=== PATIENT | female | born 1960 | race Caucasian/White ===

== ENCOUNTER 2019-01-02 08:00 | Inpatient (IN) ==
--- NOTE | 2018-12-27 09:33 | ANES ---
Anesthesia Pre Procedure Eval HOME MEDICATIONS Acetaminophen [Tylenol] 500 mg PO Q3H PRN 05/18/16 [Last Taken Unknown] Cholecalciferol (Vitamin D3) [Vitamin D3] 1,000 unit PO DAILY 05/18/16 [Last Taken Unknown] Doxazosin Mesylate [Cardura] 4 mg PO DAILY 05/18/16 [Last Taken 05/20/16 06:00] Furosemide [Lasix] 20 mg PO DAILY 05/18/16 [Last Taken Unknown] Metoprolol Tartrate [Lopressor] 100 mg PO BID 05/18/16 [Last Taken 05/20/16 06:00] valacyclovir 1 gram tablet 1,000 mg PO BID PRN 08/17/18 [Last Taken Unknown] amlodipine 5 mg tablet 5 mg PO DAILY 12/11/18 [Last Taken Unknown] Allergies/Adverse Reactions: Allergies Allergy/AdvReac Type Severity Reaction Status Date / Time Muscle Relaxers AdvReac hypotension Uncoded 12/27/18 08:21 - Planned Procedure Planned Procedure: Right Arthroplasty Total Knee Medication List Reviewed:: Yes Allergies Verified: Yes Medical History (Updated 12/11/18 @ 10:53 by Emigdio Yang MD) Bilateral primary osteoarthritis of knee Onset Date: 08/24/17 Chronic renal failure Onset Date: 2007 Essential hypertension Onset Date: Unknown 20 years ago Surgical History (Updated 08/17/18 @ 07:17 by Aye Guzman) History of hysterectomy Onset Date: 2005 bone spur removal Onset Date: 05/20/16 Right 5th toe by Dr. Ngozi Cody at [facility] Family History (Updated 08/17/18 @ 07:14 by Aye Guzman) Father Gunshot wound Mother Cancer uterine Grandmother Hypertension Diabetes Cancer uterine - Family Anesthesia History Family History:: no untoward family reactions to anesthesia, no familial bleeding tendencies, no family history of clotting disorders, no family history of premature - Airway/Neck/Teeth Within Normal Limits:: Yes Teeth Condition: intact Neck Exam: full range of motion Mallampatti Score: 3 Thyromental (T-M) distance: > 6 cm Mandibulo Hyoid distance: > 3 cm - Respiratory Respiratory Physical: lungs clear Smoking Status: Never smoker Sleep Apnea currently treated: No Sleep Apnea by current assessment: Yes - possible by anatomy and some symptoms - Cardiovascular Cardiac History: hypertension Tolerate Activity: Fair Heart Sounds: S1 & S2, Regular - Anesthesia Assessment and Plan ASA Class: PS, II - HTN stage III renal insufficiency Anesthesia Type Plan: Block - adductor canal block for post op pain relief, Spinal
[~2019-01-02 08:00] MED LIST: ROPIVACAINE HCL/PF 100 MG, EPINEPHrine 0.2 MG in NORMAL SALINE 100 ML IJ PRN; TRANEXAMIC ACID 1,000 MG in NORMAL SALINE 100 ML IV PRN; ceFAZolin SODIUM 1 GM VIAL IV PRN
--- NOTE | 2019-01-02 08:55 | ANES ---
Anesthesia Pre Procedure Eval Vitals/Labs: Last Vital Signs Temp 36.4 C 01/02/19 08:31 Pulse 67 01/02/19 08:31 Resp 18 01/02/19 08:31 BP 132/84 01/02/19 08:31 Pulse Ox 98 01/02/19 08:31 HOME MEDICATIONS Acetaminophen [Tylenol] 500 mg PO Q3H PRN 05/18/16 [Last Taken 12/29/18] Cholecalciferol (Vitamin D3) [Vitamin D3] 1,000 unit PO DAILY 05/18/16 [Last Taken 01/01/19] Doxazosin Mesylate [Cardura] 4 mg PO DAILY 05/18/16 [Last Taken 01/02/19] Furosemide [Lasix] 20 mg PO DAILY 05/18/16 [Last Taken 01/01/19] Metoprolol Tartrate [Lopressor] 100 mg PO BID 05/18/16 [Last Taken 01/02/19] valacyclovir 1 gram tablet 1,000 mg PO BID PRN 08/17/18 [Last Taken Unknown] amlodipine 5 mg tablet 5 mg PO DAILY 12/11/18 [Last Taken 01/02/19] Allergies/Adverse Reactions: Allergies Allergy/AdvReac Type Severity Reaction Status Date / Time Muscle Relaxers AdvReac Intermediate hypotension Uncoded 01/02/19 08:29 - Planned Procedure Planned Procedure: Right Arthroplasty Total Knee Medication List Reviewed:: Yes Allergies Verified: Yes Medical History (Updated 12/11/18 @ 10:53 by Emigdio Yang MD) Bilateral primary osteoarthritis of knee Onset Date: 08/24/17 Chronic renal failure Onset Date: 2007 Essential hypertension Onset Date: Unknown 20 years ago Surgical History (Updated 08/17/18 @ 07:17 by Aye Guzman) History of hysterectomy Onset Date: 2005 bone spur removal Onset Date: 05/20/16 Right [address] Ngozi Cody at [facility] Family History (Updated 08/17/18 @ 07:14 by Aye Guzman) Father Gunshot wound Mother Cancer uterine Grandmother Hypertension Diabetes Cancer uterine - Family Anesthesia History Family History:: no untoward family reactions to anesthesia, no familial bleeding tendencies, no family history of clotting disorders, no family history of premature - Airway/Neck/Teeth Within Normal Limits:: Yes Mallampatti Score: 3 Thyromental (T-M) distance: > 6 cm Mandibulo Hyoid distance: > 3 cm - Respiratory Respiratory Physical: lungs clear Smoking Status: Never smoker Discussed smoking cessation including day of surgery: No Sleep Apnea currently treated: No Sleep Apnea by current assessment: Yes Discussed Risks/Treatment of AKANKSHA: Yes - Cardiovascular Tolerate Activity: Fair Heart Sounds: S1 & S2, Regular - Anesthesia Assessment and Plan ASA Class: PS, II Anesthesia Type Plan: Block - ultrasound guided adductor canal nerve block for postop analgesia, Spinal
[2019-01-02] MEDS: RINGER'S SOLUTION,LACTATED 1,000 ML IV PRN ×4 (08:58→13:02)
[2019-01-02] MEDS ORDERED: MAG HYDROX/ALUMINUM HYD/SIMETH 30 ML UDC PO PRN (12:30)
[2019-01-02] MEDS ORDERED: MAGNESIUM HYDROXIDE 30 ML UDC PO PRN (12:30)
[2019-01-02] MEDS ORDERED: ONDANSETRON HCL/PF 2 MG/ML VIAL IV PRN (12:30)
[2019-01-02] MEDS ORDERED: ACETAMINOPHEN 500 MG TABLET PO PRN (12:30)
[2019-01-02] MEDS ORDERED: diphenhydrAMINE HCL 50 MG/ML VIAL IV PRN (12:30)
[2019-01-02] MEDS ORDERED: NORMAL SALINE 1,000 ML IV PRN (12:30)
[2019-01-02] MEDS ORDERED: oxyCODONE HCL/ACETAMINOPHEN 1 TAB TABLET PO PRN (12:30)
[2019-01-02] MEDS ORDERED: valACYclovir HCL 500 MG TABLET PO PRN (12:33)
--- NOTE | 2019-01-02 13:03 | ANES ---
Post Anesthesia Discharge - Transfer of Care Transfer of Care handoff given to nurse: Yes - Discharge from PACU Discharge from PACU when meets criteria: Yes - Discharge to ASU Discharge to ASU-no complications/pt stable: Yes
--- NOTE | 2019-01-02 13:07 | ANES ---
Anesthesia Procedure Note Procedure Note: ANESTHESIA PROCEDURE NOTE Date of Procedure: 01/02/2019. Time of procedure: 1020. Performed by: Donny Titus CRNA Computer Systems Analyst: None. Preprocedure diagnosis: Osteoarthritis right knee. Post procedure diagnosis: Same. Procedure: Right ultrasound guided adductor canal block for postoperative anal gesia. Indications: The patient is a 58 -year-old female, requesting right ultrasound- guided abductor canal block for postoperative analgesia related to right total knee arthroplasty. Findings: See below. Details of the procedure: The tissue over the intended target site was cleansed with ChloraPrepand draped in a sterile fashion. 2 ml Lidocaine 1 % was infiltrated to the skin and subcutaneous tissue at the intended target site. Under sterile technique and ultrasound guidance a 18-gauge Tuohy needle was inserted through the right sartorius muscle to the saphenous nerve just anterior and medial to the superficial femoral artery and vein. 15 mL's of 0.5% bupivacaine was injected after negative aspiration for blood. Needle tip and spread of local anesthetic surrounding the saphenous nerve was observed throughout the injection with real time ultrasound visualization. The Tuohy needle was then removed intact. No complications were noted. The images were retained in the Hospital medical database. EBL: Minimal. Fluids: N/A. Specimen: N/A. Post procedure condition: The patient tolerated the procedure well. No complications were noted. Thank you for this consultation. Donny Titus CRNA
--- NOTE | 2019-01-02 13:11 | OR ---
Operative Report - Dictated Report Narrative: Date: 01/02/2019 Preoperative diagnosis: Right knee degenerative joint disease. Postoperative diagnosis: Right knee degenerative joint disease. Procedure: Right total knee arthroplasty. Surgeon: Emigdio Yang M.D. Wedding Designer: Anjel Salas PA-C provided a set of essential, skilled, educated hands that assisted in positioning, transfer, retraction, manipulation, irrigation, closure of wounds, and placement of dressings all of which could not be provided by the available surgical crew. Anesthesia: Spinal with regional block and local periarticular joint injection. Complications: None Specimens: Bone for disposal. Estimated blood loss: Minimal. Tourniquet time: 65 Minutes at 300 millimeters of mercury. Retained implants: Depuy Attune size 5 standard lugged cemented posterior stabilized femoral component. Size 4 rotating bearing cemented tibial platform. 5 by 6 millimeter posterior stabilized cross-linked tibial insert. 32 millimeter medialized patella button. Indications: Mana is a 58-year-old female in good health. This patient was followed in my clinic for period of time with significant complaints of right knee pain consistent with arthritic changes. They had failed conservative measures including but not limited to activity modification, passage of time, medications, and other conservative measures. Patient wished to proceed with surgical treatment. The risks, benefits, and alternatives were discussed in clinic. The risks of , blood clots, bleeding, infection, nerve/tendon blood vessel/ injury, malposition of components, intraoperative fracture, postoperative limited range of motion, persistent pain, failure of components, and need for additional procedures. Patient wished to proceed consent was obtained after answering all questions. Procedure: After marking the correct extremity on the floor, the patient was taken to the operating room. A timeout was performed. IV antibiotics consisting of 2 g of Ancef were administered prior to the procedure. A regional followed by spinal anesthetic was induced by anesthesia. on the operative table with all bony prominences well-padded. Agrawal catheter was placed and a bump was placed under the operative side buttock. SCDs and MEAGAN hose were utilized on the nonoperative leg. A well-padded tourniquet was applied to the operative thigh. The operative leg was then pre-scrubbed with alcohol prepped and draped in a standard sterile fashion. After exsanguinating the extremity with an Esmarch bandage, the tourniquet was inflated. After marking out the anterior knee for standard incision centered over the patella, the skin was incised and dissected down to the joint retinaculum. The joint retinaculum was marked out as well as the horizontal axis of the patella, and a standard medial parapatellar arthrotomy was then made. The most proximal aspect of the quadriceps tendon and the patella tendon insertion were protected from release. A partial synovectomy was performed as well as a resection of the infrapatellar fat pad. The distal femoral fat pad proximal to the trochlea was also resected using cautery. The soft tissues were elevated off the medial aspect of the proximal tibia using a Serrano elevator ensuring that we did not transect the medial collateral ligament. Upon initial evaluation range of motion was approximately 0 degrees to 120 degrees of flexion. There were signs of advanced arthrosis in the medial and patellofemoral joint spaces. There were large marginal osteophytes which were removed with a rongeur. The knee was hyperflexed and the patella was tucked laterally. Protecting the surrounding soft tissues with Homans, an entry drill was placed down the femoral canal using Whitesides line for guidance into the entry point. The intramedullary femoral alignment marguerite was utilized in order to cut the distal femur in 5 of valgus resecting 10 millimeters of bone. Next the distal femur was sized to a size 5. An anterior referencing guide was utilized to place the distal femoral cutting block in 3 of external rotation. This was pinned into place. The rotation was confirmed both visually and based on anatomic landmarks. The 4 in 1 cutting jig of the appropriate size was utilized in order to make all bony cuts. Retractors were utilized in order to protect surrounding soft tissues. This cut did not result in any excessive notching. We then cut the box centered over the distal femur. This allowed for resection of the anterior and posterior cruciate ligaments. I then turned my attention to the preparation of the tibia. Using an extra medullary tibial alignment marguerite, 8 millimeters of bone was resected off the lateral articular surface. This was made perpendicular to the mechanical axis of the joint with the alignment marguerite centered over the ankle mortise. The alignment marguerite was parallel to the mechanical axis, centered over the medial one third of the tibial tubercle, paralleling the anterior surface of the tibia. We then turned our attention to the remaining meniscus and soft tissues. These were removed while protecting the surrounding ligaments and soft tissues. The marginal osteophytes off the anterior, posterior, medial, lateral aspects of the femur and tibia were removed. The tibia was sized out to a size 4. Next the tibia was drilled and punched in an externally rotated position as confirmed with a drop marguerite. Next the trial femur and a series of tibial inserts were utilized in order to allow for full extension and maximal flexion. It was found that a 6 millimeter insert gave the best range of motion and stability at multiple flexion points as well as at full extension there was less than 2 mm of gapping both medially and laterally. There is minimal anterior translation with the knee at 90 of flexion and no signs of being able to dislocate the knee. The patella was then prepared. The initial thickness was 20 millimeters. This was reamed down to 12 millimeters parallel to the anterior surface of the patella. It was sized out to a size 32 mm medialized patella button. This was then drilled and trialed. Without any medial restraint the patella tracked appropriately and did not sublux or dislocate. At this point, it was felt these were the appropriate sized implants and all trials were removed. The standard periarticular joint injection consisting of ropivacaine, Toradol, and epinephrine were injected into the periarticular joint tissues. The bony surfaces were thoroughly irrigated with a pulsatile-suction saline irrigation device. A bone plug from the prior resected anterior chamfer cut was placed into the drill hole at the distal femur. The bony surfaces were then dried in preparation for placement of the implants. The cement was vacuum mixed per the coating operator's instructions. The cement was placed on the dry bony surfaces and posterior aspect of the implants. The implants were impacted into place, removing all extruded cement. At this point anesthesia administered tranexamic acid per protocol intravenously. The knee was placed in extension with axial loading with the trial insert while the cement cured. A dilute 0.35% betadyne-saline solution was used to irrigate the knee and allowed to sit in the knee while the cement cured. Once the cement cured, all remaining extruded cement was removed. The knee was placed through a range of motion with the trial insert to ensure appropriate range of motion and stability. Final range of motion was approximately 0 to 125 degrees. The knee was again thoroughly irrigated with pulsatile saline lavage. The final polyethylene insert was then impacted into place ensuring no retained soft tissues. The remaining periarticular joint injection was injected. The knee was then packed with lap sponges which were soaked with dilute betadyne solution and the tourniquet was let down. Pressure was held for approximately 2 minutes and then hemostasis was obtained using electrocautery to coagulate any bleeding vessels. The knee was then placed over a triangle and the arthrotomy was closed with interrupted #1 Vicryl after thoroughly irrigating the joint. The deep and subcutaneous tissues were closed with interrupted oh and 3-0 Vicryl respectively. Skin was closed wi th a running subcutaneous 3-0 Monocryl and kodi. Xeroform, 4 x 4's, ABD, Sof-Rol, and a full leg Ghulam wrap were applied. All sponge, needle, blade, and instrument counts were correct prior to closing the wounds. Postoperative condition: The patient was awoken and transferred to the postanesthesia care unit in stable condition. Plan is to be admitted to the inpatient medical/surgical floor postoperatively for 24 hours of IV antibiotics, physical therapy, occupational therapy, and medical co-management. Patient will be weightbearing as tolerated with range of motion as tolerated. DVT pr ophylaxis will be with SCDs, MEAGAN hose, and pharmacological anticoagulation. Anticipated hospital stay is approximately 2-4 days.
--- NOTE | 2019-01-02 13:12 | ANES ---
Post Anesthesia Assessment - Vital Signs Vitals: Last Vital Signs Temp 36.6 C 01/02/19 13:10 Pulse 62 01/02/19 13:10 Resp 18 01/02/19 13:10 BP 110/65 01/02/19 13:10 Pulse Ox 94 01/02/19 13:10 Airway Patency: Normal - Mental Status Level Of Consciousness: Awake - Pain Level Pain Score: 0 - N/V Assessment Nausea/Vomiting Presence: None Dehydration:: No
[2019-01-02] MEDS: ceFAZolin SODIUM 2 GM in DEXTROSE 5 % IN WATER 50 ML IV SCH ×4 (13:49→23:10)
[2019-01-02] MEDS: oxyCODONE HCL/ACETAMINOPHEN 1 TAB TABLET PO PRN ×3 (14:38→23:09)
[2019-01-02] MEDS: MORPHINE SULFATE 2 MG/ML DISP.SYRIN IV PRN ×2 (16:21→17:30)
[2019-01-02] MEDS ORDERED: SENNOSIDES/DOCUSATE SODIUM 1 TAB TABLET PO SCH (21:00)
[2019-01-02] MEDS: METOPROLOL TARTRATE 100 MG TABLET PO SCH (21:09)
[2019-01-03] MEDS: oxyCODONE HCL/ACETAMINOPHEN 1 TAB TABLET PO PRN ×4 (03:33→16:29)
[2019-01-03] MEDS: ceFAZolin SODIUM 2 GM in DEXTROSE 5 % IN WATER 50 ML IV SCH ×2 (05:27)
[2019-01-03 05:37] LABS: Hematocrit 34.6 % (37.0-47.0); Hemoglobin 11.2 gm/dL (12.5-16.0); Mean Cell Volume 100.3 fl (78-100); Mean Corpuscular Hemoglobin 32.5 pg (27-31); Mean Corpuscular Hgb Conc 32.4 g/dl (32-36); Mean Platelet Volume 10.5 fl (8-12.5); Platelet Count 213 K/mm3 (150-450); Red Blood Count 3.45 M/mm3 (4.2-5.4); Red Cell Distribution Width 12.4 % (11.5-14.0); White Blood Count 14.2 K/mm3 (4.0-10.5)
[2019-01-03 05:45] LABS: Anion Gap 9.7 mmol/L (6.8-13.8); BUN/Creatinine Ratio 16.7 (9.0-21.6); Calcium * 8.7 mg/dL (7.9-10.9); Carbon Dioxide 29.3 mmol/L (24-32.6); Estimated Creat Clear 52.5
[2019-01-03] MEDS: MORPHINE SULFATE 2 MG/ML DISP.SYRIN IV PRN (06:33)
[2019-01-03] MEDS: METOPROLOL TARTRATE 100 MG TABLET PO SCH (08:59)
[2019-01-03] MEDS ORDERED: DOXAZOSIN MESYLATE 2 MG TABLET PO SCH (09:00)
[2019-01-03] MEDS ORDERED: FUROSEMIDE 20 MG TABLET PO SCH (09:00)
[2019-01-03] MEDS ORDERED: amLODIPine BESYLATE 5 MG TABLET PO SCH (09:00)
[2019-01-03] MEDS ORDERED: ENOXAPARIN SODIUM 40 MG/0.4 ML SYRG SC SCH (11:31)
--- NOTE | 2019-01-03 15:36 | DS ---
(1) Status post total right knee replacement using cement Problem: Acute Description of Stay: Patient is a 58-year-old female postop day 1 status post a right total knee arthroplasty. Patient was admitted to the hospital status post her right TKA for monitoring, pain control, return to p.o. diet, PT/OT. Patient has met all PT/OT goals, including steps. Patient has had no other acute complications. Patient's pain is well controlled at this time with p.o. pain medication. Patient states she has no other acute symptoms. Exam reveals no significant erythema or drainage from incision or bandages, sensation intact light touch, 5/5 plantar flexion dorsiflexion of her ankle, still capillary refill brisk, diffuse tenderness about her right knee. Plan to discharge patient home, she has help at home from a family member. She will follow-up with orthopedic outpatient clinic at 2 weeks postop. Patient can continue to monitor dressing for any erythema or drainage. She will continue pain medication p.o. Patient will continue Lovenox for 10 days. Followed by 325 mg aspirin daily for 6 weeks. Patient will call with any acute questions or concerns. Procedures Performed: see notes below List Procedures: That is post right total knee arthroplasty Results and Findings: Lab Pending Results 01/03/19 05:05: WBC 14.2 H, RBC 3.45 L, Hgb 11.2 L, Hct 34.6 L, MCV 100.3 H, MCH 32.5 H, MCHC 32.4, RDW 12.4, Plt Count 213, MPV 10.5 01/03/19 05:05: Sodium 136, Plasma Sodium 136, Potassium 4.0, Chloride 101, Carbon Dioxide 29.3, Anion Gap 9.7, BUN 17 D, Creatinine 1.02, Est GFR (Non-Af Amer) 59 L D, BUN/Creatinine Ratio 16.7, Random Glucose 116 H, Calcium 8.7 Discharge Location: Home Disposition: Home self-care Condition: Good Discharge Activity: Activity as tolerated, Weight bearing - Assistive device PRN Discharge Diet: General/regular food Referrals: Denisse Larkin DO [Primary Care Provider] - Problem Oriented Discharge Instructions to Patient/Family: Total Knee Replacement, Care After, [id number], Total Knee Replacement, [id number] Print Language (Welsh or Indonesian Available): Welsh Additional Patient Instructions (free text): Physical Therapy at [facility] on TuesdayJanuary 05 at 10:30am. Follow up Dr Yang's Orthopedic office appt. on TuesdayJanuary 17 at 9:30am. Prescriptions (Any new or edited meds): Enoxaparin Sodium [Lovenox] 40 mg SC Q24H #9 disp.syrin oxyCODONE HCL/ACETAMINOPHEN [Percocet 5 MG/325 MG] 1 - 2 tab PO Q4H PRN #90 tab PRN Reason: Severe Pain (Pain Scale 7-10) Ondansetron HCl [Zofran] 4 mg PO TID PRN #30 tab PRN Reason: Nausea Complete Home Medications List: Complete Home Medication List: Acetaminophen [Tylenol] 500 mg PO Q3H PRN 05/18/16 Cholecalciferol (Vitamin D3) [Vitamin D3] 1,000 unit PO DAILY 05/18/16 Doxazosin Mesylate [Cardura] 4 mg PO DAILY 05/18/16 Furosemide [Lasix] 20 mg PO DAILY 05/18/16 Metoprolol Tartrate [Lopressor] 100 mg PO BID 05/18/16 valacyclovir 1 gram tablet 1,000 mg PO BID PRN 08/17/18 amlodipine 5 mg tablet 5 mg PO DAILY 12/11/18 Enoxaparin Sodium [Lovenox] 40 mg SC Q24H #9 disp.syrin 01/03/19 Ondansetron HCl [Zofran] 4 mg PO TID PRN #30 tab 01/03/19 oxyCODONE HCL/ACETAMINOPHEN [Percocet 5 MG/325 MG] 1 - 2 tab PO Q4H PRN #90 tab 01/03/19
[2019-01-03 19:13] VITALS: BP 112/69
== END 2019-01-03 16:45 | disposition home or self-care (01) | DRG 470 ==
LOC: MS 08:18 → EDSTATUS 10:45
PROVIDERS: ADMIT Orthopaedic Surgery; ATTEND Orthopaedic Surgery
DX: I12.9 Hypertensive chronic kidney disease with stage 1 through stage 4 chronic kidney disease, or unspecified chronic kidney disease; I10 Essential (primary) hypertension; N18.3 Chronic kidney disease, stage 3 (moderate); M17.11 Unilateral primary osteoarthritis, right knee; L40.4 Guttate psoriasis
CPT/HCPCS: 36415; 73560; 80048; 85027; 97110; 97116; 97161; 97165; 97535; J2405